=== PATIENT | male | born 1985 | race Two or more races ===

== ENCOUNTER → 2018-01-25 | Outpatient (CLI) | payer OTHER | END | disposition home or self-care (01) | LOC: RAD 501 09:38 | DX: Z01.818 Encounter for other preprocedural examination (principal); K40.90 Unilateral inguinal hernia, without obstruction or gangrene, not specified as recurrent ==

== ENCOUNTER 2018-02-13 06:00 | Day surgery (SDC) | payer OTHER ==
[2018-02-13] MEDS ORDERED: PERCOCET 5-3251 EACH PO (12:10)
[2018-02-13] MEDS ORDERED: NEURONTIN300 MG PO (12:10)
[2018-02-13] MEDS ORDERED: POLY119PG PO (12:10)
== END 2018-02-13 13:57 | disposition home or self-care (01) ==
LOC: CIR.AMB 06:00
DX: K40.90 Unilateral inguinal hernia, without obstruction or gangrene, not specified as recurrent (principal)

== ENCOUNTER 2022-08-02 05:30 | Day surgery (SDC) | payer OTHER ==
[~2022-08-02] VITALS: Ht 165.1 cm; Wt 90.7 kg
[~2022-08-02 05:30] MED LIST: NEURONTIN300 MG PO; PERCOCET 5-3251 EACH PO; POLY119PG PO
[2022-08-02] MEDS ORDERED: PERCOCET 5-3251 EACH PO (10:12)
[2022-08-02] MEDS ORDERED: POLY119PG PO (10:12)
[2022-08-02] MEDS ORDERED: NEURONTIN300 MG PO (10:12)
== END 2022-08-02 11:50 | disposition home or self-care (01) ==
LOC: CIR.AMB 05:30
PROVIDERS: ATTEND Surgery
DX: K40.90 Unilateral inguinal hernia, without obstruction or gangrene, not specified as recurrent (principal); Z20.822 Contact with and (suspected) exposure to COVID-19
CPT/HCPCS: 49650; C1781